=== PATIENT | male | born 1955 | race Caucasian/White ===

== ENCOUNTER 2023-10-08 23:43 | Emergency (ER) | payer OTHER ==
--- OUTSIDE RECORDS SUMMARY | 2023-10-08 23:46 | XMS REPORT | Continuity of Care Document ---
Author Name Unknown Address [address] [place] [address] [address] [facility] Address [address] [facility]. 1 [address] [place] [address] Care Team Providers Care Supervisor Claims Name Role Phone RAHAT WILEY Primary Care Physician Abi vailaDR RAHAT Brennan Attending Clinician Abi vailable [phone] Attending Clinician Unavailable Robert Attending Clinician Unavailable DR RAHAT WILEY Admitting Clinician Abi vailable Robert Admitting Clinician Unavailable Payers Payer Name Policy Type Policy Number Effective Date Expirati on Date Source [place] [employer] [id number] 2019 00:00:00 [facility] () [id number] [place] [employer] - [facility] [id number] 2019 00:00:00 Problems Condition Name Condition Details Condition Category Status Onset Date Resolution Date Last Treatment Date Treating Clinician Comments Source Hyperlipid emia Hyperlipid emia Problem Active 10-12 00:00: 00 [facility] Hypertensi ve disorder Hypertensi ve Disorder Problem Active 10-12 00:00: 00 [facility] Allergies, Adverse Reactions, Alerts Allergy Name Allergy Type Status Severity Reaction(s) Onset Date Inactive Date Treating Clinician Comments Source PENICILL INS Allergy to substanc e Active [facility] Medications Ordered Medication Name Filled Medication Name Start Date Stop Date Current Medication? Ordering Clinician Indication Dosage Frequency Signature (SIG) Comments Components Source allopurinol 100 mg tablet 0.5 mg daily allopurinol 100 mg tablet 0.5 mg daily No allopurino l 100 mg tablet 0.5 mg daily [facility] aspirin 81 mg tablet,baldomero yed release aspirin 81 mg tablet,baldomero yed release No aspirin 81 mg tablet,del ayed release [facility] benzonatate 200 mg capsule Take 1 capsule every 8 hours by oral route as needed. as needed for cough benzonatate 200 mg capsule Take 1 capsule every 8 hours by oral route as needed. as needed for cough No 1capsul e(s) Q8H benzonatat e 200 mg capsule Take 1 capsule every 8 hours by oral route as needed. as needed for cough [facility] carvedilol 12.5 mg tablet carvedilol 12.5 mg tablet No carvedilol 12.5 mg tablet [facility] doxycycline hyclate 100 mg capsule Take 1 capsule twice a day by oral route for 10 days. doxycycline hyclate 100 mg capsule Take 1 capsule twice a day by oral route for 10 days. No 1capsul e(s) BID doxycyclin e hyclate 100 mg capsule Take 1 capsule twice a day by oral route for 10 days. [facility] Eliquis 5 mg tablet TAKE 1 TABLET BY MOUTH TWICE DAILY Eliquis 5 mg tablet TAKE 1 TABLET BY MOUTH TWICE DAILY No Eliquis 5 mg tablet TAKE 1 TABLET BY MOUTH TWICE DAILY [facility] ezetimibe 10 mg tablet ezetimibe 10 mg tablet No ezetimibe 10 mg tablet [facility] finasteride 5 mg tablet finasteride 5 mg tablet No finasterid e 5 mg tablet [facility] hydrochloro thiazide 12.5 mg tablet hydrochloro thiazide 12.5 mg tablet No hydrochlor othiazide 12.5 mg tablet [facility] nitroglycer in 0.4 mg sublingual tablet nitroglycer in 0.4 mg sublingual tablet No nitroglyce rin 0.4 mg sublingual tablet [facility] omeprazole 20 mg capsule,del ayed release omeprazole 20 mg capsule,del ayed release No omeprazole 20 mg capsule,de layed release [facility] ProAir HFA 90 mcg/actuati on aerosol inhaler Inhale 2 puffs every 4-6 hours by inhalation route as needed. as needed for cough/ wheezing ProAir HFA 90 mcg/actuati on aerosol inhaler Inhale 2 puffs every 4-6 hours by inhalation route as needed. as needed for cough/ wheezing No 2puff(s ) Q5H ProAir HFA 90 mcg/actuat ion aerosol inhaler Inhale 2 puffs every 4-6 hours by inhalation route as needed. as needed for cough/ wheezing [facility] rosuvastati n 5 mg tablet rosuvastati n 5 mg tablet No rosuvastat in 5 mg tablet [facility] tamsulosin 0.4 mg capsule tamsulosin 0.4 mg capsule No tamsulosin 0.[address] [facility] Vital Signs Vital Name Observation Time Observation Value Comments S ource BP Diastolic 2022-10-12 00:00:00 88 mm[Hg] [facility] Height 2022-10-12 00:00:00 66 [in_i] [facility] BMI (Body Mass Index) 2022-10-12 00:00:00 34.7 kg/m2 [facility] BP Systolic 2022-10-12 00:00:00 128 mm[Hg] [facility] Weight 2022-10-12 00:00:00 3438.4 [oz_av] [facility] Procedures Procedure Date / Time Performed Performing Clinicia n Source Hernia Repair 2002-08-08 00:00:00 [facility] Carotid Stent Placement [facility] Plan of Care Planned Activity Planned Date Details Comments Source Diagnostic Test Pending 2022-10-12 00:00:00 rapid influenza virus A + B and SARS CoV + SARS CoV 2 Ag panel, IA, upper respiratory specimen [code = rapid influenza virus A + B and SARS CoV + SARS CoV 2 Ag panel, IA, upper respiratory specimen] [facility] Instructions [facility] Start Date/Time End Date/Time Encounter Type Admission Type Attending Clinicians Care Facility Care Department Encounter ID Source 2023-09-16 14:29:00 2023-09-16 14:29:00 Outpatient N RAHAT WILEY [id number] [facility] [id number] [facility] 2022-10-12 00:00:00 2022-10-12 00:00:00 Outpatient [facility] [id number] [facility] 2022-10-12 00:00:00 2022-10-12 00:00:00 Outpatient [facility] [id number] [facility] 2022-10-12 00:00:00 2022-10-12 00:00:00 Kristina Muñoz PA-C: [address] [place] [address], [address], [place] [address] , Ph. [facility] [id number] [facility]
[2023-10-09 03:02] LABS: Absolute Lymphocytes (CBC) 0.4 K/uL (0.7-4.9); Basophils % 0.5 % (0-1.3); Hematocrit 34.8 % (39.6-49.0); Lymphocytes % 6.5 % (15.3-44.8); MCV 92.8 fL (80-100); MPV 10.1 fL (7.6-11.3); Platelets 155 thou/uL (152-406); RBC Red Blood Cell Count 3.75 M/uL (4.33-5.43)
[2023-10-09 03:28] LABS: Protime INR 1.39
[2023-10-09 03:45] LABS: Albumin 3.5 g/dL (3.4-5.0); Albumin/Globulin Ratio 1.1 (1.1-1.8); Anion Gap 11.6 mEq/L (5.0-15.0); Bilirubin Direct 0.1 mg/dL (0-0.2); Bilirubin Indirect, Calculated 0.3 mg/dL (0.2-0.8); Bilirubin Total 0.4 mg/dL (0.2-1.0); Magnesium 2.1 mg/dL (1.6-2.4); Potassium 3.6 mEq/L (3.5-5.1); Protein, Total 6.8 g/dL (6.4-8.2); Troponin High Sensitivity 8.8 pg/mL (<58.9)
--- NOTE | 2023-10-09 04:48 | ER ---
Nurse's Notes [facility] Name: Nicholas German Age: 68 yrs Sex: Male : 1955 Arrival Date: 10/08/2023 Time: 23:43 Bed 17 Private MD: Diagnosis: Gross hematuria Presentation: 10/08 00:12 Chief complaint: Patient states: hematuria with large clots and decrease in urine pf1 output,onset worse tonight, onset July. Patient stated was seen here earlier today for the same symptoms, symptoms improved then was discharged. Coronavirus screen: Vaccine status: Patient reports receiving the 2nd dose of the covid vaccine. Client denies travel out of the [place] in the last 14 days. At this time, the client does not indicate any symptoms associated with coronavirus-19. Ebola Screen: Patient negative for fever greater than or equal to 101.5 degrees Fahrenheit, and additional compatible Ebola Virus Disease symptoms. Initial Sepsis Screen: Does the patient meet any 2 criteria? No. Patient's initial sepsis screen is negative. Does the patient have a suspected source of infection? No. Patient's initial sepsis screen is negative. Risk Assessment: Do you want to hurt yourself or someone else? Patient reports no desire to harm self or others. 00:12 Method Of Arrival: Ambulatory pf1 00:12 Acuity: JADE 3 pf1 06:04 Onset of symptoms is unknown. 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 - Social history:: Smoking status: Patient/guardian denies using tobacco, the patient reports quitting approximately 25 years ago, Patient/guardian denies using alcohol, but has a distant history of alcohol abuse. Screenin:58 [facility] ED Fall Risk Assessment (Adult) History of falling in the last 3 months, tm6 including since admission No falls in past 3 months (0 pts) Confusion or Disorientation No (0 pts) Intoxicated or Sedated No (0 pts) Impaired Gait No (0 pts) Mobility Assist Device Used No (0 pt) Altered Elimination No (0 pt) Score/Fall Risk Level 0 - 2 = Low Risk Oriented to surroundings, Maintained a safe environment. Abuse screen: Denies threats or abuse. Denies injuries from another. Nutritional screening: No deficits noted. Tuberculosis screening: No symptoms or risk factors identified. Assessment: 02:52 General: Appears in no apparent distress. Behavior is calm, cooperative. Pain: tm6 Complains of pain in groin Quality of pain is described as spasming Aggravated by urinating. Neuro: Level of Consciousness is awake, alert, obeys commands, Oriented to person, place, time, situation. Cardiovascular: Capillary refill < 3 seconds Patient's skin is warm and dry. Respiratory: Airway is patent Respiratory effort is even, unlabored, Respiratory pattern is regular, symmetrical. GI: Abdomen is round non-distended. : Reports blood in urine, difficulty urinating. pain when urinating. EENT: No signs and/or symptoms were reported regarding the EENT system. Derm: No signs and/or symptoms reported regarding the dermatologic system. Musculoskeletal: No signs and/or symptoms reported regarding the musculoskeletal system. 03:58 Reassessment: Patient and/or family updated on plan of care and expected duration. Pain tm6 level reassessed. Patient is alert, oriented x 3, equal unlabored respirations, skin warm/dry/pink. 05:15 Reassessment: Patient and/or family updated on plan of care and expected duration. Pain tm6 level reassessed. Patient is alert, oriented x 3, equal unlabored respirations, skin warm/dry/pink. discharge pending completion of bladder irrigation. 06:02 Reassessment: Patient appears in no apparent distress at this time. Patient and/or tm6 family updated on plan of care and expected duration. Pain level reassessed. Patient is alert, oriented x 3, equal unlabored respirations, skin warm/dry/pink. Vital Signs: 00:12 BP 155 / 95; Pulse 73; Resp 16; Temp 97.6; Pulse Ox 99% on R/A; Weight 95.25 kg; Height pf1 5 ft. 7 in. ; Pain 0/10; 02:58 BP 131 / 78; Pulse 79; Pulse Ox 96% on R/A; Pain 0/10; tm6 03:58 BP 97 / 70; Pulse 77; Pulse Ox 97% on R/A; Pain 0/10; tm6 05:15 BP 125 / 80; Pulse 67; Pulse Ox 98% on R/A; Pain 0/10; tm6 06:03 BP 115 / 73; Pulse 63; Resp 19; Temp 97.3(TE); Pulse Ox 100% on R/A; Pain 0/10; tm6 00:12 Body Mass Index 32.89 (95.25 kg, 170.18 cm) pf1 00:12 Pain Scale: Adult pf1 02:58 Pain Scale: Adult tm6 03:58 Pain Scale: Adult tm6 05:15 Pain Scale: Adult tm6 06:03 Pain Scale: Adult tm6 ED Course: 02 23:51 Patient arrived in ED. gm2 23:52 Dhruv Coburn PA is PHCP. cp 23:52 Herrera Leung MD is Attending Physician. cp 10/08 00:20 Triage completed. pf1 01:14 XRAY Chest (1 view) In Process Unspecified. EDMS 02:08 Katherine Sharma, RN is Primary Nurse. tm6 02:51 Inserted saline lock: 20 gauge in right antecubital area, using aseptic technique. tm6 02:58 Patient has correct armband on for positive identification. Call light in reach. Side tm6 rails up X 1. Provided Education on: plan of care. Client placed on continuous cardiac and pulse oximetry monitoring. NIBP monitoring applied. equipment monitor phototypesetting on. Pulse ox on. NIBP on. 02:58 Arm band placed on right wrist. tm6 03:24 CT Stone Protocol In Process Unspecified. EDMS 04:00 EKG done, by ED staff. tm6 04:24 3-way catheter inserted, using sterile technique, 16 Fr. Returned bloody urine. Bladder tm6 irrigated via Edwards normal saline returned amparo blood Patient tolerated well. 04:47 Ulises Champion MD is Referral Physician. ec2 04:47 Referral Physician role handed off by Ulises Champion MD ec2 06:02 leg bag applied to edwards. tm6 06:02 Provided Education on: edwards maintenance. tm6 06:03 No provider procedures requiring assistance completed. IV discontinued, intact, tm6 bleeding controlled, No redness/swelling at site. Pressure dressing applied. Administered Medications: No medications were administered Medication: 02:58 VIS not applicable for this client. tm6 Outcome: 04:47 Discharge ordered by . ec2 06:03 Discharged to home ambulatory, with family, tm6 06:03 Condition: stable 06:03 Discharge instructions given to patient, family, Instructed on discharge instructions, follow up and referral plans. edwards maintenance Demonstrated understanding of instructions, follow-up care, edwards maintenance 06:04 Patient left the ED. tm6 Signatures: Dispatcher [employer] EDMS Dhruv Coburn PA PA cp Finley, Pamala, KIMI RN pf1 Hererra Leung MD MD ec2 Tasia Villalobos Tawney, RN RN tm6 Corrections: (The following items were deleted from the chart) 00:23 00:20 PSHx: bladder (Bladder CA); pf1 pf1
--- NOTE | 2023-10-09 04:48 | EDPHYS ---
Physician Documentation [facility] Name: Nicholas German Age: 68 yrs Sex: Male : 1955 Arrival Date: 10/08/2023 Time: 23:43 Bed 17 Private MD: ED Physician Herrera Leung HPI: 10/08 00:33 This 68 yrs old Male presents to ER via Ambulatory with complaints of Urinary Problem, cp BLOOD IN URNINE. 00:33 The patient presents with urinary symptoms, retention, unable to void, hematuria. cp Onset: The symptoms/episode began/occurred yesterday. Associated signs and symptoms: Pertinent positives: abdominal pain. 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 - Social history:: Smoking status: Patient/guardian denies using tobacco, the patient reports quitting approximately 25 years ago, Patient/guardian denies using alcohol, but has a distant history of alcohol abuse. ROS: 00:35 Constitutional: Negative for body aches, chills, fever, poor PO intake, cp 00:35 Cardiovascular: Negative for chest pain, edema, palpitations, cp 00:35 Abdomen/GI: Positive for abdominal pain, of the suprapubic area, 00:35 Back: Negative for pain at rest, pain with movement, 00:35 : Positive for hematuria, difficulty urinating, 03:54 Constitutional: as per hpi ec2 Exam: 00:40 Constitutional: The patient appears in no acute distress, alert, awake, cp non-diaphoretic, non-toxic, well developed, well nourished, uncomfortable, 00:40 Head/Face: Normocephalic, atraumatic. cp 00:40 Eyes: Periorbital structures: appear normal, Conjunctiva: normal, no exudate, no injection, Sclera: no appreciated abnormality, Lids and lashes: appear normal, bilaterally, 00:40 ENT: External ear(s): are unremarkable, Nose: is normal, Mouth: Lips: moist, Oral mucosa: pink and intact, moist, Posterior pharynx: is normal, airway is patent, no erythema, no exudate, 00:40 Chest/axilla: Inspection: normal, 00:40 Cardiovascular: Rate: normal, Rhythm: regular, 00:40 Respiratory: the patient does not display signs of respiratory distress, Respirations: normal, no use of accessory muscles, no retractions, labored breathing, is not present, Breath sounds: are clear throughout, no decreased breath sounds, no stridor, no wheezing, 00:40 Abdomen/GI: Inspection: abdomen appears normal, Bowel sounds: active, all quadrants, Palpation: soft, in all quadrants, moderate abdominal tenderness, in the suprapubic area, 00:40 Back: CVA tenderness, is absent, Vital Signs: 00:12 BP 155 / 95; Pulse 73; Resp 16; Temp 97.6; Pulse Ox 99% on R/A; Weight 95.25 kg; Height pf1 5 ft. 7 in. ; Pain 0/10; 02:58 BP 131 / 78; Pulse 79; Pulse Ox 96% on R/A; Pain 0/10; tm6 03:58 BP 97 / 70; Pulse 77; Pulse Ox 97% on R/A; Pain 0/10; tm6 05:15 BP 125 / 80; Pulse 67; Pulse Ox 98% on R/A; Pain 0/10; tm6 06:03 BP 115 / 73; Pulse 63; Resp 19; Temp 97.3(TE); Pulse Ox 100% on R/A; Pain 0/10; tm6 00:12 Body Mass Index 32.89 (95.25 kg, 170.18 cm) pf1 00:12 Pain Scale: Adult pf1 02:58 Pain Scale: Adult tm6 03:58 Pain Scale: Adult tm6 05:15 Pain Scale: Adult tm6 06:03 Pain Scale: Adult tm6 MDM: 00:28 Patient medically screened. cp 02:09 Data reviewed: vital signs. Transition of care: Care assumed from Dhruv AGUSTIN. ED ec2 course: Patient arrives today with hematuria and concern for obstruction. Plan is to obtain lab work, CT imaging and reassess the patient.. 03:30 ED course: CBC shows anemia 10.3. PT at 1.4. . ec2 03:47 ED course: EKG independently reviewed and interpreted by me, shows atrial fibrillation, ec2 rate of 80, no acute ST segment elevations, nonconcerning intervals.. 03:54 ED course: Metabolic profile shows slight hypokalemia. Troponin within normal ranges. ec2 Pending CT imaging. . 04:38 ED course: Of note patient with UA earlier this morning that was noninfectious ec2 appearing. Will defer repeat UA. . 04:38 ED course: CT on pelvis shows no acute intra-abdominal process, no ureteral or renal ec2 calculi. Chronic AAA noted, no evidence of rupture or leakage, will recommend repeat follow-up in 5 years. Patient with bladder diverticula noted. . 04:46 ED course: Will discharge home with catheter in place. Will have patient follow-up with ec2 urology. Patient has urology appointment in 2 and half weeks. He will follow-up at this time. . 10/08 00:47 Order name: Basic Metabolic Panel; Complete Time: 03:54 cp 10/08 00:47 Order name: CBC with Diff; Complete Time: 03:30 cp 10/08 00:47 Order name: LFT's; Complete Time: 03:54 cp 10/08 00:47 Order name: Magnesium; Complete Time: 03:54 cp 10/08 00:47 Order name: PT-INR; Complete Time: 03:30 cp 10/08 00:47 Order name: Troponin HS; Complete Time: 03:54 cp 10/08 00:47 Order name: XRAY Chest (1 view) cp 10/08 02:04 Order name: CT Stone Protocol cp 10/08 00:47 Order name: EKG; Complete Time: 00:48 cp 10/08 00:47 Order name: Cardiac monitoring; Complete Time: 02:51 cp 10/08 00:47 Order name: EKG - Nurse/Tech; Complete Time: 03:46 cp 10/08 00:47 Order name: IV Saline Lock; Complete Time: 02:51 cp 10/08 00:47 Order name: Labs collected and sent; Complete Time: 02:51 cp 10/08 00:47 Order name: O2 Per Protocol; Complete Time: 02:37 cp 10/08 00:47 Order name: O2 Sat Monitoring; Complete Time: 02:37 cp 10/08 00:47 Order name: Driss-Three way; Complete Time: 04:24 cp Administered Medications: No medications were administered Disposition: 04:47 I agree with the assessment and plan of care. I reviewed the patient's care provided by ec2 Advanced Practice Provider \T\ agree w/ the diagnosis \T\ care plan. I personally saw the pt \T\ performed a substantive portion of the visit, incldng all aspects of the (History/Exam/Medical Decision Making). Disposition Summary: 10/09/23 04:47 Discharge Ordered Condition: Stable ec2 Diagnosis - Gross hematuria ec2 Followup: ec2 - With: Private Physician - When: - Reason: Re-evaluation by your physician Followup: ec2 - With: Ulises Champion MD - When: - Reason: Recheck today's complaints Discharge Instructions: - Discharge Summary Sheet ec2 - Hematuria, Adult ec2 Forms: - Medication Reconciliation Form ec2 - Thank You Letter ec2 - Antibiotic Education ec2 - Prescription Opioid Use ec2 - Patient Portal Instructions ec2 - Leadership Thank You Letter ec2 Signatures: Dispatcher [employer] EDMS Dhruv Coburn PA PA cp Solange Moore, RN RN pf1 Herrera Leung MD MD ec2 Corrections: (The following items were deleted from the chart) 00:23 00:20 PSHx: bladder (Bladder CA); pf1 pf1 01:33 00:50 This 68 yrs old Male presents to ER via Ambulatory with complaints of Urinary cp Problem, BLOOD IN URNINE. cp
[2023-10-09 06:35] VITALS: BP 115/73; TEMP 97.3; O2SAT 100
--- NOTE | 2023-10-09 20:42 | RAD REPORT ---
EXAM DESCRIPTION: RAD - Chest Single View - 10/09/2023 1:12 am CLINICAL HISTORY: Hematuria COMPARISON: None. TECHNIQUE: XR CHEST 1 VIEW 10/09/2023 12:47 AM [facility] FINDINGS: Cardiac silhouette is normal in size. Lungs are clear without consolidation, atelectasis, mass or edema. There is no pleural effusion. There is no pneumothorax. There are no acute osseous fin dings. Right diaphragm is elevated. IMPRESSION: Clear lungs. Electronically signed by: Malcolm Porras MD 10/09/2023 01:19 AM [facility] Due to temporary technical issues with the PACS/Fluency reporting system, reports are being signed by the in house radiologists without review as a courtesy to insure prompt reporting. The interpreting radiologist is fully responsible for the content of the report.
--- NOTE | 2023-10-09 20:43 | RAD REPORT ---
EXAM DESCRIPTION: CT - Stone Protocol - 10/09/2023 6:06 am ADDENDUM #1 Correction: Cystic structures in the pelvis, in this male patient, do not represent ovarian cysts but most likely represent urinary bladder diverticula. Electronically signed by: Malcolm Porras MD 10/09/2023 04:13 AM CHIEF INSPECTOR End of Addendum CLINICAL HISTORY: HEMATURIA COMPARISON: None. TECHNIQUE: CT ABDOMEN PELVIS WITHOUT IV CONTRAST on 10/09/2023 2:04 AM CHIEF INSPECTOR This exam was performed according to our departmental dose-optimization program, which includes autom ated exposure control, adjustment of the mA and/or kV according to patient size and/or use of iterati ve reconstruction technique. FINDINGS: Lower lungs are clear. Abdomen: The liver is normal in appearance. There is no biliary dilatation. Gallbladder is normal in appearance. The pancreas and spleen are normal in appearance. Adrenal glands are normal. Upper pole l eft renal cyst measures 4.3 cm. There is no hydronephrosis. Abdominal aorta is moderately calcified measuring up to 2.9 cm. There is no free air. There is no ret roperitoneal adenopathy. Pelvis: There is mild diverticulosis of the distal colon. Urinary bladder is unremarkable. There is n o free fluid. Hysterectomy was performed. Right ovarian cyst measures 6.8 cm. Left ovarian cyst measu res 4.4 cm. Appendix is normal. Skeleton: There are no acute osseous findings. No suspicious bony lesions. IMPRESSION: No definite renal or ureteral calculi. 2.9 cm abdominal aortic aneurysm suspected. Recommend follow-up every 5 years. Reference: J Am Marybel Radiol 2013;10:789-794. Left Bosniak I/Bosniak II benign renal cyst measuring 4.3 cm. No follow-up imaging is recommended. JACR 2018 b; 264-273, Management of the Incidental Renal Mass on CT, [employer] 2020; 814-848, B osniak Classification of Cystic Renal Masses, Version 2019. Bilateral ovarian cysts. Recommend ultrasound. Electronically signed by: Malcolm Porras MD 10/09/2023 03:56 AM CHIEF INSPECTOR Due to temporary technical issues with the PACS/Fluency reporting system, reports are being signed by the in house radiologists without review as a courtesy to insure prompt reporting. The interpreting radiologist is fully responsible for the content of the report.
--- NOTE | 2023-10-11 17:12 | EKG ---
Test Date: 2023-10-09 Test Time: 03:43:09 Guest Services: BEBETO MEASUREMENT RESULTS: Intervals: Rate: 80 SD: QRSD: 82 QT: 398 QTc: 459 [place]: P: SD: QRS: 59 T: 24 INTERPRETIVE STATEMENTS: Atrial fibrillation Low voltage QRS Septal infarct, age undetermined Abnormal ECG No previous ECG available for comparison Electronically Signed On 10-11-23 17:05:05 DIRECTOR INDEX by Austyn Barron
== END 2023-10-09 06:04 | disposition home or self-care (01) ==
LOC: EEVIPCON 23:43 → ER 23:43
DX: R31.0 Gross hematuria (principal); R10.30 Lower abdominal pain, unspecified; Z85.51 Personal history of malignant neoplasm of bladder; Z95.818 Presence of other cardiac implants and grafts; Z88.0 Allergy status to penicillin; Z88.8 Allergy status to other drugs, medicaments and biological substances
CPT/HCPCS: 51700; 71045; 74176; 76377; 93005; 99285

== ENCOUNTER 2023-10-10 10:47 | Inpatient (IN) | payer OTHER ==
--- OUTSIDE RECORDS SUMMARY | 2023-10-10 10:49 | XMS REPORT | Continuity of Care Document ---
Author Name Unknown Address [address] [place] [address] [address] [facility] Address [address] [facility]. 1 [address] [place] [address] Care Team Providers Care Sales Support Representative Name Role Phone RAHAT WILEY Primary Care Physician Abi vailaDR RAHAT Brennan Attending Clinician Abi vailable [phone] Attending Clinician Unavailable Robert Attending Clinician Unavailable DR RAHAT WILEY Admitting Clinician Abi vailable Robert Admitting Clinician Unavailable Payers Payer Name Policy Type Policy Number Effective Date Expirati on Date Source [place] [employer] [id number] 2019 00:00:00 [facility] () [id number] [place] [employer] - [facility] [id number] 2019 00:00:00 Problems Condition Name Condition Details [...] l 100 mg tablet 0.5 mg daily [facility] aspirin 81 mg tablet,baldomero yed release aspirin 81 mg tablet,baldomero yed release No aspirin 81 mg tablet,del ayed release [facility] benzonatate 200 mg capsule [...] route as needed. as needed for cough [facility] carvedilol 12.5 mg tablet carvedilol 12.5 mg tablet No carvedilol 12.5 mg tablet [facility] doxycycline hyclate 100 mg capsule Take 1 capsule twice a day by oral route for 10 days. doxycycline hyclate 100 mg capsule Take 1 capsule twice a day by oral route for 10 days. No 1capsul e(s) BID doxycyclin e hyclate 100 mg capsule Take 1 capsule twice a day by oral route for 10 days. [facility] Eliquis 5 mg tablet TAKE 1 TABLET BY MOUTH TWICE DAILY Eliquis 5 mg tablet TAKE 1 TABLET BY MOUTH TWICE DAILY No Eliquis 5 mg tablet TAKE 1 TABLET BY MOUTH TWICE DAILY [facility] ezetimibe 10 mg tablet ezetimibe 10 mg tablet No ezetimibe 10 mg tablet [facility] finasteride 5 mg tablet finasteride 5 mg tablet No finasterid e 5 mg tablet [facility] hydrochloro thiazide 12.5 mg tablet hydrochloro thiazide 12.5 mg tablet No hydrochlor othiazide 12.5 mg tablet [facility] nitroglycer in 0.4 mg sublingual tablet nitroglycer in 0.4 mg sublingual tablet No nitroglyce rin 0.4 mg sublingual tablet [facility] omeprazole 20 mg capsule,del ayed release omeprazole 20 mg capsule,del ayed release No omeprazole 20 mg capsule,de layed release [facility] ProAir HFA 90 mcg/actuati on aerosol inhaler [...] as needed. as needed for cough/ wheezing [facility] rosuvastati n 5 mg tablet rosuvastati n 5 mg tablet No rosuvastat in 5 mg tablet [facility] tamsulosin 0.4 mg capsule tamsulosin 0.4 mg capsule No tamsulosin 0.4 mg capsule [facility] Vital Signs Vital Name Observation Time Observation Value Comments S ource BP Diastolic 2022-10-12 00:00:00 88 mm[Hg] [facility] Height 2022-10-12 00:00:00 66 [in_i] [facility] BMI (Body Mass Index) 2022-10-12 00:00:00 34.7 kg/m2 [facility] BP Systolic 2022-10-12 00:00:00 128 mm[Hg] [facility] 2022-10-12 00:00:00 3438.4 [oz_av] [facility] Procedures Procedure Date / Time Performed Performing Clinicia n Source Hernia Repair 2002-08-08 00:00:00 [facility] Carotid Stent Placement [facility] Plan of Care Planned Activity Planned Date Details Comments Source Diagnostic Test Pending 2022-10-12 00:00:00 rapid influenza virus A + B and SARS CoV + SARS CoV 2 Ag panel, [place], upper respiratory specimen [code = rapid influenza virus A + B and SARS CoV + SARS CoV 2 Ag panel, IA, upper respiratory specimen] [facility] Instructions [facility] Encounters Start Date/Time End Date/Time Encounter Type Admission Type Attending Clinicians Care Facility Care Department Encounter ID Source 2023-09-16 14:29:00 2023-09-16 14:29:00 Outpatient N RAHAT WILEY [id number] [facility] [id number] [facility] 2022-10-12 00:00:00 2022-10-12 00:00:00 Outpatient Koudela_A [facility] [id number] [facility] 2022-10-12 00:00:00 2022-10-12 00:00:00 Outpatient [facility]ela[facility] [id number] [facility] 2022-10-12 00:00:00 2022-10-12 00:00:00 Kristina Muñoz PA-C: [address] [place] [address], [address], [place] [address] , Ph. [facility] [id number] [facility]
[2023-10-10] MEDS ORDERED: NACL 0.9% IRR SOLN 2,000 ML IRR ONE ×3 (12:30→14:16)
--- NOTE | 2023-10-10 15:23 | EDPHYS ---
Physician Documentation [facility] Name: Nicholas German Age: 68 yrs Sex: Male : 1955 Arrival Date: 10/10/2023 Time: 10:47 Bed 8 Private MD: ED Physician Jonatan Hills HPI: 10/09 18:09 This 68 yrs old Male presents to ER via Wheelchair with complaints of Problem With ms3 Urinary Catheter. 18:09 68-year-old male with past medical history of bladder cancer presents to the emergency [facility] department for hematuria. Patient was seen on October 07, October 08 and today. Patient initially presented to the emergency department for urinary retention after discovering the hematuria. Patient states he is having 8/10 suprapubic pain. Patient denies any alleviating or inciting factors. 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 - Social history:: Smoking status: Patient/guardian denies using tobacco, but has a distant history of tobacco abuse. ROS: 18:09 Constitutional: Negative for fever, and chills. Neck: Negative for injury, pain, and ms3 swelling, Cardiovascular: Negative for chest pain, and palpitations. Respiratory: Negative for shortness of breath, cough, wheezing, and pleuritic chest pain, Abdomen/GI: Negative for abdominal pain, nausea, vomiting, diarrhea, and constipation, 18:09 : Positive for hematuria, Urinary retention, Exam: 18:09 Constitutional: This is a well developed, well nourished patient who is awake, alert, ms3 and in no acute distress. Head/Face: Normocephalic, atraumatic. Chest/axilla: Normal chest wall appearance and motion. Nontender with no deformity. Cardiovascular: Regular rate and rhythm with a normal S1 and S2. No gallops, murmurs, or rubs. Normal PMI, no JVD. No pulse deficits. Respiratory: Lungs have equal breath sounds bilaterally, clear to auscultation and percussion. No rales, rhonchi or wheezes noted. No increased work of breathing, no retractions or nasal flaring. Abdomen/GI: Soft, non-tender, with normal bowel sounds. No distension or tympany. No guarding or rebound. No evidence of tenderness throughout. Skin: Warm, dry with normal turgor. Normal color with no rashes, no lesions, and no evidence of cellulitis. MS/ Extremity: Pulses equal, no cyanosis. Neurovascular intact. Full, normal range of motion. 18:09 : a edwards is noted, Vital Signs: 11:03 BP 145 / 79; Pulse 85; Resp 18; Temp 98.4; Pulse Ox 98% on R/A; Pain 0/10; iw 12:05 BP 140 / 82; Pulse 78; Resp 18; Pulse Ox 99% on R/A; rs5 14:05 BP 135 / 77; Pulse 73; Resp 17; Pulse Ox 98% on R/A; rs5 15:50 BP 137 / 80; Pulse 74; Resp 18; Pulse Ox 99% on R/A; rs5 11:03 Pain Scale: Adult iw MDM: 11:02 Patient medically screened. ms3 18:09 Differential diagnosis: nonspecific abdominal pain, UTI, Hematuria. Data reviewed: ms3 vital signs, nurses notes, and as a result, I will admit patient. Consideration of Admission/Observation Patient was admitted/placed on observation. Management of patient was discussed with the following: Hospitalist: Dr. Walters. Vending Machine Technician: Dr. Champion. Historians other than the Patient: Spouse/Significant Other: Patient's . Counseling: I had a detailed discussion with the patient and/or guardian regarding the historical points, exam findings, and any diagnostic results supporting the discharge/admit diagnosis, lab results, the need for outpatient follow up, to return to the emergency department if symptoms worsen or persist or if there are any questions or concerns that arise at home. Special discussion: I discussed with the patient/guardian in detail that at this point there is no indication for admission to the hospital. It is understood, however, that if the symptoms persist or worsen the patient needs to return immediately for re-evaluation. ED course: Discussed case with Dr. Champion and he will consult on patient. Discussed case with Dr. Walters and he accepts patient as admission. Patient and his understand and agree with plan. All questions were answered.. 10/09 15:06 Order name: CBC with Diff; Complete Time: 17:56 ms3 10/09 15:06 Order name: CMP ms3 10/09 15:06 Order name: PT-INR ms3 10/09 15:17 Order name: Urinalysis w/ reflexes; Complete Time: 17:56 ms3 10/09 13:28 Order name: Bladder Irrigation; Complete Time: 13:45 ms3 10/09 15:20 Order name: IV; Complete Time: 16:50 la1 Administered Medications: 13:44 Drug: Uromatic Irrigation - NS 0.9% IV 4000 ml 2000 ml IV at calculated rate once rs5 {Note: Adm to three way edwards.} Volume: 2000 ml; Route: IV; Rate: calculated rate; Site: Other; 14:00 Follow up: Response: No adverse reaction rs5 Disposition Summary: 10/10/23 15:22 Hospitalization Ordered Notes: Hospitalization Status: Inpatient Admission ms3 Provider: Bertram Walters ms3 Location: Telemetry/MedSur (Inpatient) ms3 Condition: Stable ms3 Problem: new ms3 Symptoms: are unchanged ms3 Bed/Room Type: Standard ms3 Room Assignment: 206(10/10/23 16:38) bd Diagnosis - Hematuria, unspecified ms3 - Urinary retention ms3 Forms: - Medication Reconciliation Form ms3 - SBAR form ms3 - Leadership Thank You Letter ms3 Signatures: Dispatcher [employer] EDNadiya Hilton Irene, KIMI BOLDEN iw Kalyan Hill, HEALTHCARE ADVISORY SERVICES MANAGER-C HEALTHCARE ADVISORY SERVICES MANAGER-Desi1 Jonatan Hills DO DO ms3 Fred Bryson RN RN rs5 Corrections: (The following items were deleted from the chart) 16:38 15:22 ms3 bd
--- NOTE | 2023-10-10 15:23 | ER ---
Nurse's Notes [facility]tet Name: Nicholas German Age: 68 yrs Sex: Male : 1955 Arrival Date: 10/10/2023 Time: 10:47 Bed 8 Private MD: Diagnosis: Hematuria, unspecified;Urinary retention Presentation: 10/09 11:03 Chief complaint: Patient states: had edwards placed yesterday , had CBI done , this iw morning he has been passing blood and urine is leaking out od edwards , has hx of bladder and prostate cancer , has had multiple surgeries to remove tumors, urologist is in [place]. Coronavirus screen: At this time, the client does not indicate any symptoms associated with coronavirus-19. Ebola Screen: Patient negative for fever greater than or equal to 101.5 degrees Fahrenheit, and additional compatible Ebola Virus Disease symptoms Patient denies exposure to infectious person. Initial Sepsis Screen: Does the patient meet any 2 criteria? No. Patient's initial sepsis screen is negative. Does the patient have a suspected source of infection? No. Patient's initial sepsis screen is negative. Risk Assessment: Do you want to hurt yourself or someone else? Patient reports no desire to harm self or others. Onset of symptoms was October 10, 2023. 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 - Social history:: Smoking status: Patient/guardian denies using tobacco, but has a distant history of tobacco abuse. Screenin:53 [facility] ED Fall Risk Assessment (Adult) History of falling in the last 3 months, rs5 including since admission No falls in past 3 months (0 pts) Confusion or Disorientation No (0 pts) Intoxicated or Sedated No (0 pts) Impaired Gait No (0 pts) Mobility Assist Device Used No (0 pt) Altered Elimination No (0 pt) Score/Fall Risk Level 0 - 2 = Low Risk Oriented to surroundings, Maintained a safe environment. 10:53 Abuse screen: Denies threats or abuse. Nutritional screening: No deficits noted. rs5 Tuberculosis screening: No symptoms or risk factors identified. Assessment: 10:55 General: Appears in no apparent distress. uncomfortable, Behavior is calm, cooperative. rs5 Pain: Denies pain. Neuro: Level of Consciousness is awake, alert, obeys commands, Oriented to person, place, time, situation. Cardiovascular: Rhythm is regular. Respiratory: Airway is patent Respiratory effort is even, unlabored, Respiratory pattern is regular, symmetrical. GI: Abdomen is round non-distended, Abd is soft and non tender X 4 quads. : 3-way catheter in place clamped pt has a urine bag strapped to right lower extremity. 200 ml bright red urine drained from drainage bag. Pt states "it feels like the catheter has a clot in it because when I pee it leeks outside the cathether". 10:55 EENT: No signs and/or symptoms were reported regarding the EENT system. Derm: Skin Skin rs5 is pink, warm \\T\\ dry. Musculoskeletal: Range of motion: intact in all extremities. 11:15 Reassessment: waiting for provider to put in orders. rs5 11:25 Reassessment: provider states "remove the Edwards and insert a new one with a larger rs5 catheter". 11:41 Reassessment: To bedside, Edwards removed and 20 nigerien 3-way catheter inserted per rs5 verbal orders using sterile technique. Pt voided 50 ml of bright red urine in urine bag. Provider notified. 11:45 Reassessment: Provider states "irrigate the bladder with 2 L of NS set to gravity". rs5 11:50 Reassessment: To bedside, for irrigation. rs5 12:24 Reassessment: 1L of bright red urine emptied from urinal. Pt denies pain, burning with rs5 urination or difficulty provider notified. 13:00 Reassessment: 950 ml of bright red urine emptied from urinal. Pt denies pain, burning rs5 with urination or difficulty provider notified. Provider states "irrigate Edwards catheter with 2 more liters" . 13:05 Reassessment: To bedside for bladder irrigation. rs5 13:32 Reassessment: 855 ml of pink urine emptied from urinal, provider notified. rs5 14:14 Reassessment: 900 ml pink urine emptied from urinal, provider notified. Provider at rs5 bedside, provider states "irrigate with two more liters". 14:15 Reassessment: To bedside for bladder irrigation. rs5 Vital Signs: 11:03 BP 145 / 79; Pulse 85; Resp 18; Temp 98.4; Pulse Ox 98% on R/A; Pain 0/10; iw 12:05 BP 140 / 82; Pulse 78; Resp 18; Pulse Ox 99% on R/A; rs5 14:05 BP 135 / 77; Pulse 73; Resp 17; Pulse Ox 98% on R/A; rs5 15:50 BP 137 / 80; Pulse 74; Resp 18; Pulse Ox 99% on R/A; rs5 11:03 Pain Scale: Adult iw ED Course: 10:49 Patient arrived in ED. mr 10:49 Jonatan Hills DO is Attending Physician. ms3 10:55 Gisel Cochran, RN is Primary Nurse. ko1 11:05 Triage completed. iw 11:06 Arm band placed on. iw 11:15 Patient has correct armband on for positive identification. Allergy band placed. Placed ko1 in gown. Bed in low position. Call light in reach. Side rails up X2. Provided Education on: na. Client placed on continuous cardiac and pulse oximetry monitoring. NIBP monitoring applied. personnel monitor on. Door closed. Noise minimized. Lights dimmed. Warm blanket given. 11:23 Fred Bryson, RN is Primary Nurse. rs5 15:22 Bertram Walters MD is Hospitalizing Provider. ms3 16:45 Missed attempt(s): 20 gauge in right wrist. bc6 16:50 Inserted saline lock: 20 gauge in right wrist, using aseptic technique. bc6 17:00 No provider procedures requiring assistance completed. ko1 17:00 Patient admitted, IV remains in place. rs5 Administered Medications: 13:44 Drug: Uromatic Irrigation - NS 0.9% IV 4000 ml 2000 ml IV at calculated rate once rs5 {Note: Adm to three way edwards.} Volume: 2000 ml; Route: IV; Rate: calculated rate; Site: Other; 14:00 Follow up: Response: No adverse reaction rs5 Medication: 16:58 VIS not applicable for this client. ko1 Outcome: 15:22 Decision to Hospitalize by Provider. ms3 15:30 Discharged to rs5 15:30 Admitted to ER Hold. Please see [facility] for further documentation. 15:30 Condition: stable 15:30 Discharge instructions given to patient, Instructed on the need for admit, Demonstrated understanding of instructions, 17:31 Patient left the ED. rs5 Signatures: Leonor Nicole, Reg Reg mr Denae Vu, RN RN iw Jonatan Hills, DO ms3 Gisel Cochran RN RN ko1 Fred Bryson RN RN rs5 Pooja Fry 6 Corrections: (The following items were deleted from the chart) 14:10 11:41 Reassessment: To bedside, Edwards removed and 20 nigerien 3-way catheter inserted per rs5 MD verbal orders using sterile technique. Pt voided 50 ml of bright red urine in urine bag. rs5 14:12 12:24 Reassessment: 1L of bright red urine emptied from urinal, provider notified. rs5 rs5 14:13 13:00 Reassessment: 950 ml of bright red urine emptied from urinal. Pt denies pain, rs5 burning with urination or difficulty provider notified . rs5 17:57 17:56 Patient left the ED. rs5 rs5
--- NOTE | 2023-10-10 17:25 | P.HP ---
Certification for Inpatient Patient admitted to: Observation With expected LOS: <2 Midnights Patient will require the following post-hospital care: None Practitioner: I am a practitioner with admitting privileges, knowledge of patient current condition, hospital course, and medical plan of care. Services: Services provided to patient in accordance with Admission requirements found in Title 42 Section 412.3 of the Code of Federal Regulations Patient History Date of Service: 10/10/23 Reason for admission: Hematuria History of Present Illness: 68-year-old male with history of atrial fibrillation on chronic anticoagulation, CAD hypertension, hyperlipidemia, gout, GERD and obstructive sleep apnea presents the emergency department chief complaint of hematuria. He has a medical history of prostate and bladder cancer as well, last year they attempted to remove his prostate but it was reportedly adhered to his colon so they are unable to remove it, he then underwent 39 radiation treatments for the bladder cancer which significantly improved, they performed a biopsy in August and it still was positive for cancer. He has been taking an oral chemo agent since then. He typically gets his care in [place], his urologist name is Dr. Barrera phone number [phone] The past few days he has been having blood in his urine, the first time he came to the emergency department it seemed to resolve spontaneously so he was discharged, he had to come back as he could not urinate and a Naqvi catheter was placed and he was discharged but the bleeding continued and therefore he had to come back for third time the emergency department he is now being admitted for hematuria. A three-way catheter was placed in the emergency department and he has undergone bladder irrigation still with very dark blood returning. Urology was consulted by the ER physician. Patient does take Eliquis his last dose was today around noon. He had abdominal CT performed on 10/09/2023 which revealed 2.9 cm abdominal aortic aneurysm with recommended 5-year follow-up observation, left benign renal cyst measuring 4.3 cm no follow-up imaging recommended cystic structures in the pelvis most likely representing urinary bladder diverticula. ED prior wishes to admit patient for further evaluation and management of hematuria. Allergies Penicillins Allergy (Verified 10/10/23 17:03) Hives/Rash - Past Medical/Surgical History -: A-fib on chronic anticoagulation -: CAD with stents -: Hypertension -: Hyperlipidemia -: GERD -: JOHN PAUL Past Surgical History: Reviewed- Non-Contributory Psychosocial/ Personal History: Lives with his in [place], spends some months of the year here in [facility] - Family History Family History: Reviewed- Non-Contributory - Social History Smoking Status: Former smoker Alcohol use: Yes CD- Drugs: No Caffeine use: No Place of Residence: Home Review of Systems 10-point ROS is otherwise unremarkable Genitourinary: Hematuria Physical Examination - Physical Exam General: Alert, In no apparent distress, Oriented x3 HEENT: Atraumatic, PERRLA, Mucous membr. moist/pink Neck: Supple, 2+ carotid pulse no bruit, No LAD Respiratory: Clear to auscultation bilaterally, Normal air movement Cardiovascular: Regular rate/rhythm, Normal S1 S2 Gastrointestinal: Normal bowel sounds, No tenderness Musculoskeletal: No tenderness Integumentary: No rashes Neurological: Normal gait, Normal speech, Normal strength at 5/5 x4 extr, Normal tone, Normal affect Urinary: Naqvi catheter (With dark red blood noted) Assessment and Plan - Plan Assessment: Hematuria Bladder/prostate cancer Atrial fibrillation on chronic anticoagulation therapy History of CAD Hypertension Hyperlipidemia Gout GERD JOHN PAUL Plan: Hematuria Bladder/prostate cancer Currently on oral chemotherapy agents Completed 39 radiation treatments for bladder cancer Had attempted prostatectomy but apparently was adhered to his colon Started having hematuria 2 to 3 days [id number] catheter in place with I Urology consulted olga Sharpe Out of town urologist in [place] [phone] Atrial fibrillation on chronic anticoagulation therapy History of CAD Hold Eliquis, aspirin Continue other home medications when verified Hypertension Hyperlipidemia Gout GERD Continue home medication once verified plans on bringing list in the morning JOHN PAUL Patient brought his own CPAP which he may use DVT PPX: SCD Code status: Full Discharge Plan: Home Plan to discharge in: 24 Hours - Advance Directives Does patient have a Living Will: No Does patient have a Durable POA for Healthcare: No - Code Status/Comfort Care Code Status Assessed: Yes (Full code) Critical Care: No Time Spent Managing Pts Care (In Minutes): 70
[2023-10-10 17:45] LABS: Absolute Eosinophils 0.1 K/uL (0-0.5); Absolute Lymphocytes (CBC) 0.4 K/uL (0.7-4.9); Absolute Monocytes 0.7 K/uL (0.1-1.3); Absolute Neutrophil 4.6 K/uL (1.8-8.0); Basophils % 0.5 % (0-1.3); Hematocrit 32.2 % (39.6-49.0); Hemoglobin 11.4 g/dL (13.6-17.9); Lymphocytes % 7.3 % (15.3-44.8); MCH 32.9 pg (27.0-35.0); MCHC 35.4 g/dL (32.0-36.0); MCV 92.9 fL (80-100); MPV 9.9 fL (7.6-11.3); Monocytes % 11.8 % (3.3-12.3); Neutrophils % 78.4 % (41.7-73.7); Nucleated Red Blood Cells % 0.1 % (0-0); Platelets 150 thou/uL (152-406); RBC Red Blood Cell Count 3.47 M/uL (4.33-5.43); Red Cell Distribution Width 12.5 % (12.1-15.2)
[2023-10-10 17:48] LABS: Urine Bacteria <20 /HPF (<20); Urine RBC >50 /HPF (None Seen)
[2023-10-10 17:49] LABS: Urine Clarity Extremely Turbid (Clear); Urine Color Red (Yellow)
[2023-10-10 18:02] LABS: Albumin 3.5 g/dL (3.4-5.0); Albumin/Globulin Ratio 1.1 (1.1-1.8); Anion Gap 10.7 mEq/L (5.0-15.0); Bilirubin Total 0.3 mg/dL (0.2-1.0); Globulin 3.3 g/dL (2.3-3.5); Potassium 3.7 mEq/L (3.5-5.1); Protein, Total 6.8 g/dL (6.4-8.2)
[2023-10-10 18:19] VITALS: BMI 32.8
[2023-10-10 18:55] LABS: PT Prothrombin Time 15.2 SECONDS (9.5-12.5); Protime INR 1.4
[2023-10-10] MEDS: LIDOCAINE JELLY 2% 5 ML SYRINGE TOP ONE (19:07)
--- NOTE | 2023-10-10 20:03 | P.CNS ---
Date of Consult: 10/10/23 Reason for Consult: Gross hematuria Chief Complaint: Hematuria History of Present Illness: 68-year-old gentleman with chronic A-fib on Eliquis (last dose this morning), CAD post PCI with stents following a NC 5 years ago on Brilinta plus aspirin 81, hypertension, hyperlipidemia, GERD and JOHN PAUL with history of bladder cancer diagnosed in 2018 post attempted, but failed, BCG induction course with recurrence as recently as 08/15/2023, and likely high-grade/advanced prostate cancer s/p attempted, but failed, RALRP in 01/2023 subsequently managed by IMRT, completed 07/2023, on abiraterone + prednisone 5 + finasteride. Following his most recent cystoscopic bladder biopsy 08/15/2023 by his urologist in [place], Dr. Barrera, he developed intermittent but recurrent gross hematuria. He and his have since been traveling in a motor home, and had plans to stay in the area for another couple of weeks. However yesterday, the gross hematuria became progressively worse; so he came to the emergency department. He denies any problems urinating, noting he was able to pass some clots without issue, but the emergency department placed a urethral Naqvi catheter and discharged him home. He returned because of issues with clotting of the catheter and bladder spasms ejecting the urine around the catheter emanating from the urethra. Past medical history as above Past surgical history as above Social history: Former smoker Examination: Well-appearing, well-developed, well-nourished, no acute distress Alert, awake, oriented x 3 No dyspnea or sign of respiratory distress Abdomen nontender 20 [place] three-way Naqvi catheter in place draining pink urine with CBI on slow drip. Bladder irrigation procedure note: I then assessed the current catheter situation by cleansing the hub of the catheter with alcohol and then irrigating the catheter using approximately 400 cc of normal saline. I was able to remove a modest quantity of clot, but no significant large clots were encountered. To ensure proper placement of the catheter and optimal irrigation, I recommended exchange of the catheter to a larger, more appropriate three-way, and continuing CBI. Urethral Naqvi catheter exchange, bladder irrigation, and CBI reinitiation procedure note: The 20 [place] three-way Naqvi catheter placed in the emergency department was removed after deflating the balloon of 30 cc of fluid. I then cleansed the glans penis and meatus with Betadine before instilling a lidocaine Uro-Jet and urethrally for local anesthesia. I then passed a 22 [place] three-way Naqvi catheter via his urethra into his bladder with ease. 30 cc of sterile water was placed in the balloon. I then irrigated his bladder with another 250 to 300 cc of sterile water and encountered no additional clots. I thus connected the catheter back to CBI w NS@slow to moderate drip and was able to achieve pink to light pink drainage. Of note, the patient experienced aggressive bladder spasms throughout the irrigation process and even upon initiation of CBI which caused the urine to become significantly pinker. Other than the bladder spasms, he tolerated the procedure well and without complications. 10/08/2023 hemoglobin 13.8, urine culture 10-100 K mixed leroy 10/09/2023 hemoglobin 12.3 10/10/2023 hemoglobin 11.4, WBC 5.9, platelets 150, creatinine 0.88 Assessment and recommendation: 68-year-old gentleman with chronic A-fib on Eliquis (last dose this morning), CAD post PCI with stents following a NC 5 years ago on Brilinta plus aspirin 81, hypertension, hyperlipidemia, GERD and JOHN PAUL with history of bladder cancer diagnosed in 2018 post attempted, but failed, BCG induction course with rec urrence as recently as 08/15/2023, and likely high-grade/advanced prostate cancer s/p attempted, but failed, RALRP in 01/2023 subsequently managed by IMRT, completed 07/2023, on abiraterone + prednisone 5 + finasteride, now with persistent gross hematuria with clot retention and severe bladder spasms, possibly secondary to radiation cystitis versus recurrence of/residual bladder cancer. -Hold Eliquis. Since his last dose was today, 10/10/2023, it will take the next 48 to 72 hours to get out of his system -Hold Brilinta -Hold baby aspirin x 72 hours, then may resume, hopefully once bleeding has cea sed -Continue daily abiraterone plus prednisone 5. If medications not available on formulary, patient should be allowed to take his home medication per routine. -Pending cultures, ceftriaxone versus cefepime IV antimicrobial prophylaxis -Ditropan extended release 10 mg tablets daily for spasms -Valium 5 mg tablets every 8 hours as needed breakthrough spasms -If hematuria fails to resolve by , or if progressive anemia becomes transfusion requiring, operative evaluation may be required. Allergies Penicillins Allergy (Verified 10/10/23 17:03) Hives/Rash Home medications list reviewed: Yes - Past Medical/Surgical History -: A-fib on chronic anticoagulation -: CAD with stents -: Hypertension -: Hyperlipidemia -: GERD -: JOHN PAUL -: bladder cancer Psychosocial/ Personal History: Lives with his in [place], spends some months of the year here in [facility] - Social History Smoking Status: Former smoker Alcohol use: Yes CD- Drugs: No Caffeine use: No Place of Residence: Home Physical Examination Temp Pulse Resp BP Pulse Ox 97.9 F 74 18 139/76 98 10/10/23 18:44 10/10/23 18:44 10/10/23 18:44 10/10/23 18:44 10/10/23 18:44 - Problems (1) Gross hematuria Current Visit: Yes Status: Acute (2) Clot retention of urine Current Visit: Yes Status: Acute (3) Primary malignant neoplasm of prostate with high risk of recurrence due to [place] score of 8 to 10 and PSA greater than 20 Current Visit: Yes Status: Acute (4) S/P radiation 4-12 weeks ago Current Visit: Yes Status: Acute (5) Bladder cancer Current Visit: Yes Status: Acute (6) CAD (coronary artery disease) Current Visit: Yes Status: Acute Qualifiers: Coronary Disease-Associated Artery/Lesion type: [place] artery [place] vs. transplanted heart: [place] heart Associated angina: unspecified whether angina present Qualified Code(s): I25.10 - Atherosclerotic heart disease of [place] coronary artery without angina pectoris (7) Chronic anticoagulation Current Visit: Yes Status: Acute (8) Painful bladder spasm Current Visit: Yes Status: Acute Conclusions/Impression: see A&P in HPI Critical Care: No Time Spent Managing Pts care (In Minutes): 75
[2023-10-10] MEDS: OXYBUTYNIN ER 5 MG TAB PO SCH (20:51)
[2023-10-10] MEDS: CEFTRIAXONE 1,000 MG in NA CHLORIDE 0.9% 50 ML IVPB ONE (20:52)
[2023-10-10] MEDS: TAMSULOSIN 0.4 MG SR CAP PO SCH (20:52)
[2023-10-10] MEDS: DIAZEPAM 5 MG TABLET PO PRN (22:22)
--- NOTE | 2023-10-10 22:35 | P.PN ---
Subjective Date of Service: 10/10/23 Chief Complaint: Hematuria 68-year-old gentleman with chronic A-fib on Eliquis (last dose this morning), CAD post PCI with stents following a NV 5 years ago on Brilinta plus aspirin 81, hypertension, hyperlipidemia, GERD and JOHN PAUL with history of bladder cancer diagnosed in 2018 post attempted, but failed, BCG induction course with recurrence as recently as 08/15/2023, and likely high-grade/advanced prostate cancer s/p attempted, but failed, RALRP in 01/2023 subsequently managed by IMRT, completed 07/2023, on abiraterone + prednisone 5 + finasteride, now with persistent gross hematuria with clot retention and severe bladder spasms, possibly secondary to radiation cystitis versus recurrence of/residual bladder cancer. -Hold Eliquis. Since his last dose was today, 10/10/2023, it will take the next 48 to 72 hours to get out of his system -Hold Brilinta -Hold baby aspirin x 72 hours, then may resume, hopefully once bleeding has ceased -Continue daily abiraterone plus prednisone 5. If medications not available on formulary, patient should be allowed to take his home medication per routine. -Pending cultures, ceftriaxone versus cefepime IV antimicrobial prophylaxis -Ditropan extended release 10 mg tablets daily for spasms -Valium 5 mg tablets every 8 hours as needed breakthrough spasms -If hematuria fails to resolve by , or if progressive anemia becomes transfusion requiring, operative evaluation may be required. I was called back out to the patient's bedside this evening at 10 PM because of difficulty irrigating the catheter associated with the patient squirting urine out of the urethra around the catheter. The nurses were concerned that the catheter may have been clogged, and they were uncertain how to manage the situation. I thus returned to the hospital within minutes and evaluated the patient. He was uncomfortable appearing in moderate distress associated with suprapubic spasmodic pain and urine squirting around the catheter. Urine in the catheter was light pink, and CBI was currently held. Bladder irrigation and catheter assessment procedure note: I again the catheter drainage bag from the catheter and slowly begin to retrograde instill approximately 40 to 50 cc of sterile water. The fluid instilled with ease, but immediately, his distress increased associated with him squirting that fluid back around the catheter out of his urethra. I allowed a few minutes for the spasm to subside and then attempted to instill additional fluid in order to aspirate for any clots. I was subsequently able to instill 60 cc of fluid and aspirate back around 20 to 30 cc before his bladder spasm and forcefully returned the fluid into the syringe associated with some small clots. After that secondary spasm subsided, I then was able to instill an additional 60 cc, and this time, aspirated back the entire quantity of fluid instilled of pink but translucent fluid with no significant clots encountered. I irrigated gently and additional couple of times, and no further spasms occurred. I then reconnected the catheter to drainage with the catheter positioned to deliver approximately 10 cm of water pressure back into his bladder to minimize the bladder collapsing around the catheter. CBI was resumed at a slow to moderate drip, and the fluid was very light pink. Overall, he tolerated the procedure well and without obvious complications. Recommendation: -Ditropan XL 10 mg given at 8:50 PM -Give the breakthrough Valium 5 mg p.o. now -Will reassess in the a.m., and if necessary, provide an additional 5 mg of the oxybutynin for a total of 15 mg per 24-hour dose Physical Examination - Vital Signs Temperature: 96.6 F Blood Pressure: 140/74 Pulse: 71 Respirations: 20 Pulse Ox (%): 96 Assessment And Plan - Current Problems (Diagnosis) (1) Gross hematuria Current Visit: Yes Status: Acute (2) Clot retention of urine Current Visit: Yes Status: Acute (3) Primary malignant neoplasm of prostate with high risk of recurrence due to [place] score of 8 to 10 and PSA greater than 20 Current Visit: Yes Status: Acute (4) S/P radiation 4-12 weeks ago Current Visit: Yes Status: Acute (5) Bladder cancer Current Visit: Yes Status: Acute (6) CAD (coronary artery disease) Current Visit: Yes Status: Acute Qualifiers: Coronary Disease-Associated Artery/Lesion type: [place] artery [place] vs. transplanted heart: [place] heart Associated angina: unspecified whether angina present Qualified Code(s): I25.10 - Atherosclerotic heart disease of [place] coronary artery without angina pectoris (7) Chronic anticoagulation Current Visit: Yes Status: Acute (8) Painful bladder spasm Current Visit: Yes Status: Acute - Plan see Recommendations in Subjective Time Spent Managing PTS Care (In Minutes): 35
[2023-10-11 00:05] LABS: Hematocrit 30.9 % (39.6-49.0); Hemoglobin 10.9 g/dL (13.6-17.9)
[2023-10-11 04:37] LABS: Absolute Eosinophils 0.2 K/uL (0-0.5); Absolute Lymphocytes (CBC) 0.4 K/uL (0.7-4.9); Basophils % 0.6 % (0-1.3); Eosinophils % 2.2 % (0-4.4); Hematocrit 28.7 % (39.6-49.0); Hemoglobin 10.2 g/dL (13.6-17.9); Lymphocytes % 5.8 % (15.3-44.8); MCH 32.8 pg (27.0-35.0); MCHC 35.6 g/dL (32.0-36.0); MCV 92.3 fL (80-100); MPV 10.2 fL (7.6-11.3); Monocytes % 13.1 % (3.3-12.3); Neutrophils % 78.3 % (41.7-73.7); Platelets 138 thou/uL (152-406); RBC Red Blood Cell Count 3.11 M/uL (4.33-5.43); Red Cell Distribution Width 12.8 % (12.1-15.2)
[2023-10-11 04:44] LABS: Anion Gap 7.5 mEq/L (5.0-15.0); Potassium 3.5 mEq/L (3.5-5.1)
[2023-10-11] MEDS: ACETAMINOPHEN 500 MG TAB PO PRN (05:06)
[2023-10-11] MEDS: NACL 0.9% IRR SOLN 2,000 ML IRR SCH (05:40)
[2023-10-11] MEDS: FINASTERIDE 5 MG TAB PO SCH (07:59)
[2023-10-11] MEDS: OXYBUTYNIN ER 5 MG TAB PO STA (07:59)
--- NOTE | 2023-10-11 13:43 | P.PN ---
Date of Service: 10/11/23 Subjective Awake and c/o bladder spasms, he did not get much sleep d/t spasm pain throughout the night. at the bedside, reports seeing Dr. Champion yesterday. CBI still in place ROS 10 point ROS as noted above, otherwise negative Physical Exam General: AAOx3, uncomfortable HEENT: Atraumatic, PERRLA, Mucous membr. moist/pink Neck: Supple, 2+ carotid pulse no bruit, No LAD Respiratory: Clear to auscultation bilaterally, Normal air movement Cardiovascular: RRR, Normal S1 S2, no murmur noted Gastrointestinal: Normal bowel sounds, No tenderness Musculoskeletal: No tenderness, 2+ peripheral pulses Integumentary: No rashes Neurological: Normal gait, Normal speech, Normal strength at 5/5 x4 extr, Normal tone, Normal affect Urinary: Naqvi catheter ([place] without clots) Vitals Reviewed Assessment: Hematuria Bladder/prostate cancer Atrial fibrillation on chronic anticoagulation therapy History of CAD Hypertension Hyperlipidemia Gout GERD JOHN PAUL Plan: Hematuria Bladder/prostate cancer Currently on oral chemotherapy agents Completed 39 radiation treatments for bladder cancer Had attempted prostatectomy but apparently was adhered to his colon Started having hematuria 2 to 3 days xin-kbhey-hac catheter in place with CBI Urology consulted Hold Eliquis and aspirin Out of town urologist in [place] [phone] H/H stable Atrial fibrillation on chronic anticoagulation therapy History of CAD Hold Eliquis and aspirin Continue other home medications Hypertension Hyperlipidemia Gout GERD Continue home medication JOHN PAUL Patient brought his own CPAP which he may use DVT PPX: SCD Code status: Full Discharge Plan: Home Plan to discharge in: 24 Hours <Judie Shaw - Last Filed: 10/11/23 13:44> Patient seen and examined. Plan of care discussed with Ms. Shaw. Hematuria is clearing Continue CBI Monitor H&H and transfuse as needed for hemoglobin less than [address] Champion to follow. Analgesics as needed Continue to hold Eliquis and aspirin Patient may need cystoscopy along the line before resuming anticoagulation and aspirin. <jennifer baca - Last Filed: 10/11/23 17:18>
--- NOTE | 2023-10-11 19:31 | P.PN ---
Date of Service: 10/11/23 68-year-old gentleman with chronic A-fib on Eliquis (last dose this morning), CAD post PCI with stents following a CT 5 years ago on Brilinta plus aspirin 81, hypertension, hyperlipidemia, GERD and JOHN PAUL with history of bladder cancer diagnosed in 2018 post attempted, but failed, BCG induction course with recurrence as recently as 08/15/2023, and likely high-grade/advanced prostate cancer s/p attempted, but failed, RALRP in 01/2023 subsequently managed by IMRT, completed 07/2023, on abiraterone + prednisone 5 + finasteride, now with pe rsistent gross hematuria with clot retention and severe bladder spasms, possibly secondary to radiation cystitis versus recurrence of/residual bladder cancer. -Hold Eliquis. Since his last dose, 10/10/2023, it will take the next 48 to 72 hours to get out of his system -Hold Brilinta -Hold baby aspirin x 72 hours, then may resume, hopefully once bleeding has ceased -Continue daily abiraterone plus prednisone 5. If medications not available on formulary, patient should be allowed to take his home medication per routine. -Pending cultures, ceftriaxone versus cefepime IV antimicrobial prophylaxis -on Ditropan extended release 10 mg tablets daily for spasms -Valium 5 mg tablets every 8 hours as needed breakthrough spasms -If hematuria fails to resolve by , or if progressive anemia becomes transfusion requiring, operative evaluation may be required. Patient seen and examined at 07:30. He says he had largely done well overnight, after receiving a dose of Valium 5 mg at around 10:30 PM. He had done well and rested overnight until around 6:30 AM when the spasms resumed. Hemoglobin trend from yesterday: 11.4-10.9-10.2 Bladder irrigation and catheter assessment procedure note: I again the catheter drainage bag from the catheter and slowly begin to retrograde instill approximately 40 to 50 cc of sterile water. The fluid instilled with ease, but immediately, his distress increased associated with him squirting that fluid back around the catheter out of his urethra. I allowed a few minutes for the spasm to subside and then attempted to instill additional fluid in order to aspirate for any clots. I was subsequently able to instill 60 cc of fluid and aspirate back. I then irrigated several more times for approximately 300 cc of NS used to irrigate his bladder, with no significant clots obtained. I then reconnected the catheter to drainage with the catheter positioned to deliver approximately 10 cm of water pressure back into his bladder to minimize the bladder collapsing around the catheter. CBI was resumed at a slow to moderate drip, and the fluid was very light pink. Overall, he tolerated the procedure well and without obvious complications. Recommendation: -Provided an additional 5 mg of Ditropan extended release this morning at 7:30 AM to try to gain better control over his bladder spasms. -Will continue with the current dosing schedule of 10 mg extended release in the p.m. with 5 mg extended release in the a.m. -Continue with Valium 5 mg p.o. as needed breakthrough spasms -Awaiting chronic anticoagulation to resolve out of his system while monitoring hemoglobin/hematocrit -Continue IV antimicrobial therapy pending cultures Addendum 19:00 I again saw the patient at bedside, interval assessment, and he had just had another significant bladder spasm, the first significant when he had had all day. He had not taken a dose of the Valium since around 1030 this morning. His urine was pink in the tubing at this time on slow drip CBI. Repeat bladder irrigation and catheter assessment procedure note: I again attempted to instill 60 cc of NS into his bladder and was met with a significant spasm that took nearly a minute to 2 minutes to resolve. I was then able to complete the instillation, advance the catheter further into his bladder, at which point I was able to irrigate nicely. No clots were found, and the catheter was draining well. After around 250 cc of irrigation completed, I thus connected the catheter back to 10 cm of water pressure drainage and slow to medium drip CBI with a urine light pink. Recommendations as above
[2023-10-11] MEDS: CEFTRIAXONE 1,000 MG in NA CHLORIDE 0.9% 50 ML IVPB SCH (19:47)
[2023-10-11] MEDS: DIAZEPAM 5 MG TABLET PO SCH (20:00)
[2023-10-12 04:34] LABS: Absolute Eosinophils 0.2 K/uL (0-0.5); Absolute Lymphocytes (CBC) 0.4 K/uL (0.7-4.9); Absolute Monocytes 0.7 K/uL (0.1-1.3); Absolute Neutrophil 3.8 K/uL (1.8-8.0); Basophils % 0.8 % (0-1.3); Eosinophils % 4.8 % (0-4.4); Hematocrit 29.2 % (39.6-49.0); Hemoglobin 10.2 g/dL (13.6-17.9); Lymphocytes % 7.6 % (15.3-44.8); MCH 32.9 pg (27.0-35.0); MCV 94.2 fL (80-100); Monocytes % 13.2 % (3.3-12.3); Neutrophils % 73.6 % (41.7-73.7); Platelets 138 thou/uL (152-406); Red Cell Distribution Width 12.9 % (12.1-15.2)
[2023-10-12 04:44] LABS: Anion Gap 8.6 mEq/L (5.0-15.0); Potassium 3.6 mEq/L (3.5-5.1)
[2023-10-12] MEDS: OXYBUTYNIN ER 5 MG TAB PO SCH (08:28)
[2023-10-12 11:45] VITALS: O2SAT 100
--- NOTE | 2023-10-12 13:40 | P.PN ---
Date of Service: 10/12/23 Subjective Awake and comfortable Urine yellow in color this AM CBI paused and will evaluate this afternoon ROS 10 point ROS as noted above, otherwise negative Physical Exam General: AAOx3, NAD HEENT: Atraumatic, PERRLA, Mucous membr. moist/pink Neck: Supple, 2+ carotid pulse no bruit, No LAD Respiratory: Clear to auscultation bilaterally, Normal air movement, on RA Cardiovascular: Regular rate and rhythm, Normal S1 S2, no murmur noted Gastrointestinal: Normal bowel sounds, NT/ND Musculoskeletal: No tenderness, 2+ peripheral pulses Integumentary: No rashes Neurological: Normal gait, Normal speech, Normal strength at 5/5 x4 extr, Normal tone, Normal affect Urinary: Naqvi catheter Vitals Reviewed Assessment: Hematuria Bladder/prostate cancer Atrial fibrillation on chronic anticoagulation therapy History of CAD Hypertension Hyperlipidemia Gout GERD JOHN PAUL Plan: Hematuria Bladder/prostate cancer Currently on oral chemotherapy agents Completed 39 radiation treatments for bladder cancer Had attempted prostatectomy but apparently was adhered to his colon hematuria -three-way catheter in place with CBI, clamped for a few hours today, bladder spasms Urology consulted Hold Eliquis and aspirin Out of town urologist in [place] [phone] H/H stable Atrial fibrillation on chronic anticoagulation therapy History of CAD Hold Eliquis and aspirin Continue other home medications Hypertension Hyperlipidemia Gout GERD Continue home medication JOHN PAUL Patient brought his own CPAP which he may use DVT PPX: SCD Code status: Full Discharge Plan: Home Plan to discharge in: 24 Hours
--- NOTE | 2023-10-12 22:25 | P.PN ---
Date of Service: 10/12/23 68-year-old gentleman with chronic A-fib on Eliquis (last dose this morning), CAD post PCI with stents following a NV 5 years ago on Brilinta plus aspirin 81, hypertension, hyperlipidemia, GERD and JOHN PAUL with history of bladder cancer diagnosed in 2018 post attempted, but failed, BCG induction course with recurrence as recently as 08/15/2023, and likely high-grade/advanced prostate cancer s/p attempted, but failed, RALRP in 01/2023 subsequently managed by IMRT, completed 07/2023, on abiraterone + prednisone 5 + finasteride, now with pe rsistent gross hematuria with clot retention and severe bladder spasms, possibly secondary to radiation cystitis versus recurrence of/residual bladder cancer. -Eliquis held. Last dose, 10/10/2023 -Brilinta held -Baby aspirin on hold, with plan to resume once bleeding has ceased -On abiraterone plus prednisone 5. -Pending cultures, ceftriaxone versus cefepime IV antimicrobial prophylaxis -on Ditropan extended release 10 mg tablets daily at bedtime and 5mg daily in AM for spasms -Valium 5 mg tablets every 8 hours scheduled Patient seen and examined: We doing well from ON such that his urine was clear with CBI held around noon. CBI clamped, but around 5PM, he developed another severe breakthrough spasm and it again became bloody. When I saw him tonight, CBI was still clamped and the urine was light pink. Hemoglobin trend from yesterday: 11.4-10.9-10.2-10.2 urine cx no growth Bladder irrigation and catheter assessment procedure note: I again the catheter drainage bag from the catheter and slowly begin to retrograde instill approximately 40 to 50 cc of sterile water. The fluid instilled with ease, but immediately, his distress increased associated with him squirting that fluid back around the catheter out of his urethra. I allowed a few minutes for the spasm to subside and then attempted to instill additional fluid in order to aspirate for any clots. I was subsequently able to instill 60 cc of fluid and aspirate back. I then irrigated several more times for approximately 250 cc of NS used to irrigate his bladder, with no significant clots obtained. I then reconnected the catheter to drainage with the catheter positioned to deliver approximately 10 cm of water pressure back into his bladder to minimize the bladder collapsing around the catheter. CBI was resumed at a very slow drip, and the fluid was very light pink. Overall, he tolerated the procedure well and without obvious complications. 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 -CLD for breakfast -NPO p 9AM -IVFs -AMLs -Bactrim DS once daily ppx -stop Ceftriaxone -Resume Ditropan 15mg ER daily (additional 10mg given tonight as only 5 mg given this AM -- please DO NOT ADJUST without discussing directly with me) -continue scheduled Valium 5mg q8h with an additional PRN 5mg q8h for breakthrough spasms
[2023-10-13] MEDS: AMITRIPTYLINE 50 MG TAB PO SCH (03:34)
[2023-10-13] MEDS: D5.45NS W/KCL 20MEQ 20 MEQ/1,000 ML BAG IV SCH (03:34)
[2023-10-13 03:58] LABS: Absolute Eosinophils 0.3 K/uL (0-0.5); Absolute Lymphocytes (CBC) 0.4 K/uL (0.7-4.9); Absolute Monocytes 0.6 K/uL (0.1-1.3); Absolute Neutrophil 3.2 K/uL (1.8-8.0); Basophils % 0.7 % (0-1.3); Eosinophils % 5.8 % (0-4.4); Hematocrit 28.1 % (39.6-49.0); Hemoglobin 9.8 g/dL (13.6-17.9); Lymphocytes % 9.3 % (15.3-44.8); MCH 32.6 pg (27.0-35.0); MCHC 34.7 g/dL (32.0-36.0); MCV 94.1 fL (80-100); MPV 9.7 fL (7.6-11.3); Monocytes % 13.3 % (3.3-12.3); Neutrophils % 70.9 % (41.7-73.7); Nucleated Red Blood Cells % 0.3 % (0-0); Platelets 145 thou/uL (152-406); RBC Red Blood Cell Count 2.99 M/uL (4.33-5.43); Red Cell Distribution Width 12.9 % (12.1-15.2)
[2023-10-13 04:17] LABS: Anion Gap 8.6 mEq/L (5.0-15.0); Potassium 3.6 mEq/L (3.5-5.1)
--- NOTE | 2023-10-13 07:20 | P.PN ---
Date of Service: 10/13/23 Subjective Sleeping and comfortable, at bedside reports he has been more comfortable since starting amitriptyline NPO for possible surgical intervention ROS 10 point ROS as noted above, otherwise negative Physical Exam General: Sleeping, NAD, calm HEENT: Atraumatic, PERRLA, Mucous membr. moist/pink Neck: Supple, 2+ carotid pulse no bruit, No LAD Respiratory: Clear to auscultation bilaterally, Normal air movement, on RA Cardiovascular: Regular rate and rhythm, S1 S2 present, no murmur noted Gastrointestinal: Normal bowel sounds, NT/ND, soft and benign on palpation Musculoskeletal: No tenderness, 2+ peripheral pulses Integumentary: No rashes Neurological: Normal gait, Normal speech, Normal strength at 5/5 x4 extr, Normal tone, Normal affect Urinary: Naqvi catheter (pink) Vitals Reviewed Assessment: Hematuria Bladder/prostate cancer Atrial fibrillation on chronic anticoagulation therapy History of CAD Hypertension Hyperlipidemia Gout GERD JOHN PAUL Plan: Hematuria Bladder/prostate cancer Refractory painful bladder spasms, likely secondary to radiation cystitis Currently on oral chemotherapy agents Completed 39 radiation treatments for bladder cancer Had attempted prostatectomy but apparently was adhered to his colon hematuria -three-way catheter in place with CBI, clamping at 4pm, Dr. Champion will re-evaluate for surgical intervention Urology consulted Hold Eliquis and aspirin Out of town urologist in [place] [phone] H/H 9.8/28.8- dropped from 10.2/29.[address] Champion Valium scheduled per Dr. Champion Oxybutynin [address] Davis Bactlobito p.o. now, stopped Rocephin continue NPO possible surgical intervention Atrial fibrillation on chronic anticoagulation therapy History of CAD Hold Eliquis and aspirin Continue other home medications Hypertension Hyperlipidemia Gout GERD Continue home medication JOHN PAUL Patient brought his own CPAP which he may use DVT PPX: SCD Code status: Full Discharge Plan: Home Plan to discharge in: 24 Hours
[2023-10-13] MEDS: OXYBUTYNIN ER 5 MG TAB PO SCH (09:00)
[2023-10-13] MEDS: SMZ./TMP. 800/160 MG TABLET PO SCH (11:00)
[2023-10-13] MEDS ORDERED: OXYBUTYNIN ER 5 MG TAB PO ONE (22:31)
--- NOTE | 2023-10-14 00:05 | P.PN ---
Date of Service: 10/13/23 68-year-old gentleman with chronic A-fib on Eliquis (last dose this morning), CAD post PCI with stents following a [place] 5 years ago on Brilinta plus aspirin 81, hypertension, hyperlipidemia, GERD and JOHN PAUL with history of bladder cancer diagnosed in 2018 post attempted, but failed, BCG induction course with recurrence as recently as 08/15/2023, and likely high-grade/advanced prostate cancer s/p attempted, but failed, RALRP in 01/2023 subsequently managed by IMRT, completed 07/2023, on abiraterone + prednisone 5 + finasteride, now with pe rsistent gross hematuria with clot retention and severe bladder spasms, possibly secondary to radiation cystitis versus recurrence of/residual bladder cancer. -Eliquis held. Last dose, 10/10/2023 -Baby aspirin on hold, with plan to resume once bleeding has ceased -On abiraterone plus prednisone 5. -on Ditropan extended release 15 mg tablets daily -Valium 5 mg tablets every 6 hours scheduled with 5 mg every 8 hours as needed breakthrough Patient seen and examined, initially at noon today, again at 7:30 PM, and again at 11:45 PM. Hemoglobin trend: 11.4-10.9-10.2-10.2-9.8 urine cx no growth At noon, patient was seen and urine was dark pink. As a result, I recommended irrigation. Bladder irrigation and catheter assessment procedure note: I began to irrigate the catheter, and I instilled 120 cc of normal saline, this time successfully, without the patient's severe bladder spasm expelling the urine around the catheter or back into the syringe. While he did express some sign of discomfort associated with bladder spasm, it was not nearly as severe as it had been previously. As a result, this time I was able to aspirate back and remove a significant quantity of clot that was mostly old. I thus aggressively irrigated for another 800 to 900 cc, for a total of about a liter of irrigation, where all clot seem to be removed after around 750 cc of irrigation. The remaining irrigation was to ensure no additional clots; so ultra aggressive catheter irrigation was performed. No additional clots were found, and he generally tolerated the irrigation quite well. His urine was crystal clear at the end of the irrigation; so the catheter was left off CBI and observed. I returned later that evening, and the patient and his reported that his urine had remained clear all day. Indeed, the urine was clear without a tinge of blood. I thus explained to them my recommendation and plan -if the urine remained clear as of midnight tonight, the catheter may be removed and the pat ient given a voiding trial until 7 AM. As long as urine does not become bloody during his voiding, he may be eligible for discharge. I again reassessed his urine at around 11:45 PM, and it remained crystal-clear. Diagnoses and Recommendation: Refractory Painful Bladder Spasms, likely secondary to Radiation Cystitis -On Ditropan 15 mg extended release daily + Valium 5 mg every 6 hours scheduled + Amitroptyline 50mg PO at bedtime -Would wean off Valium once patient begins to void in a.m. and see how he does with the oxybutynin and amitriptyline -Eventually, would wean the amitriptyline and leave him on the Ditropan Refractory Gross Hematuria, now seemingly resolved with clear urine, in setting of h/o urothelial Ca of the bladder -Regular diet for dinner -N.p.o. after 2 AM -Continue Bactrim DS once daily ppx -If recurrent gross hematuria, operative evaluation may be required -General medicine/cardiology consideration of his risk of continuing to hold the Eliquis relative to his atrial fibrillation. I think the best point of valor right now would be to avoid resuming the Eliquis. Certainly the baby aspirin could be resumed with low risk of bleeding, and if his cardiac risk is high and some anticoagulation is needed, recommend Lovenox instead, which has a shorter half-life. He has an appointment scheduled with his home urologist in [place] the week after next, and they plan to leave to drive back home next week. I am concerned that resuming the Eliquis is at high risk for the recurrent bleeding at some point during that time; so if it can remain held for now, until after cystoscopic analysis is completed, that would be best. -Over 1 hour of [id number] time spent in the frequent visits and multiple analyses described above and counseling and discussion with the patient and his
[2023-10-14 03:57] LABS: Absolute Eosinophils 0.2 K/uL (0-0.5); Absolute Lymphocytes (CBC) 0.3 K/uL (0.7-4.9); Absolute Monocytes 0.6 K/uL (0.1-1.3); Absolute Neutrophil 3.8 K/uL (1.8-8.0); Basophils % 0.6 % (0-1.3); Hematocrit 29.6 % (39.6-49.0); Hemoglobin 10.4 g/dL (13.6-17.9); Lymphocytes % 5.1 % (15.3-44.8); MCH 33.1 pg (27.0-35.0); MCHC 35.2 g/dL (32.0-36.0); MPV 9.5 fL (7.6-11.3); Neutrophils % 77.3 % (41.7-73.7); Platelets 159 thou/uL (152-406); RBC Red Blood Cell Count 3.15 M/uL (4.33-5.43); Red Cell Distribution Width 12.8 % (12.1-15.2)
[2023-10-14 04:12] LABS: Anion Gap 7.6 mEq/L (5.0-15.0); Potassium 3.6 mEq/L (3.5-5.1)
--- NOTE | 2023-10-14 13:55 | P.PN ---
Date of Service: 10/14/23 68-year-old gentleman with chronic A-fib on Eliquis (last dose this morning), CAD post PCI with stents following a [place] 5 years ago on Brilinta plus aspirin 81, hypertension, hyperlipidemia, GERD and JOHN PAUL with history of bladder cancer diagnosed in 2018 post attempted, but failed, BCG induction course with recurrence as recently as 08/15/2023, and likely high-grade/advanced prostate cancer s/p attempted, but failed, RALRP in 01/2023 subsequently managed by IMRT, completed 07/2023, on abiraterone + prednisone 5 + finasteride, now with pe rsistent gross hematuria with clot retention and severe bladder spasms, possibly secondary to radiation cystitis versus recurrence of/residual bladder cancer. -Eliquis held. Last dose, 10/10/2023 -Baby aspirin on hold, with plan to resume once bleeding has ceased -On abiraterone plus prednisone 5. -on Ditropan extended release 15 mg tablets daily -Valium 5 mg tablets every 6 hours scheduled with 5 mg every 8 hours as needed breakthrough Hemoglobin trend: 11.4-10.9-10.2-10.2-9.8-10.4 urine cx no growth Catheter removed at [place], and patient voiding with ease and with clear light yellow urine. He denies any need to push or strain to urinate, no incomplete emptying, and no bothersome urgency. He does acknowledge frequency, but he is on IVFs. Diagnoses and Recommendation: Refractory Painful Bladder Spasms, likely secondary to Radiation Cystitis, now resolved - Continue Ditropan 15 mg extended release daily - stop Valium 5 mg every 6 hours scheduled and Amitroptyline 50mg PO at bedtime -continue Valium 5mg q8h PRN breakthrough spasms -check bladder scan PVR to ensure adequate emptying Refractory Gross Hematuria, now resolved with clear urine, in setting of h/o urothelial Ca of the bladder -Resume diet -May stop Bactrim DS after today's dose -If recurrent gross hematuria, operative evaluation may be required -General medicine/cardiology consideration of his risk of continuing to hold the Eliquis relative to his atrial fibrillation. I think the best point of valor right now would be to avoid resuming the Eliquis. Certainly the baby aspirin could be resumed with low risk of bleeding, and if his cardiac risk is high and some anticoagulation is needed, recommend Lovenox instead, which has a shorter half-life. He has an appointment scheduled with his home urologist in [place] the week after next, and they plan to leave to drive back home next week. I am concerned that resuming the Eliquis is at high risk for the recurrent bleeding at some point during that time; so if it can remain held for now, until after cystoscopic analysis is completed, that would be best.
--- NOTE | 2023-10-14 15:44 | P.PN ---
Date of Service: 10/14/23 Subjective feel well this AM no c/o bladder spasms urine is yellow likely discharge at PT evaluation ROS 10 point ROS as noted above, otherwise negative Physical Exam General: AAO x3, NAD, calm HEENT: Atraumatic, PERRLA, Mucous membr. moist/pink Neck: Supple, 2+ carotid pulse no bruit, No LAD Respiratory: Clear to auscultation bilaterally, Normal air movement, on RA Cardiovascular: S1 S2 present, RRR, no murmur noted Gastrointestinal: bowel sounds present, NT/ND, soft and benign on palpation Musculoskeletal: No tenderness, 2+ peripheral pulses Integumentary: No rashes Neurological: Normal gait, Normal speech, Normal strength at 5/5 x4 extr, Normal tone, Normal affect Urinary: Naqvi catheter (yellow) Vitals Reviewed Assessment: Hematuria Bladder/prostate cancer Atrial fibrillation on chronic anticoagulation therapy History of CAD Hypertension Hyperlipidemia Gout GERD JOHNP AUL Plan: Hematuria Bladder/prostate cancer Refractory painful bladder spasms, likely secondary to radiation cystitis Currently on oral chemotherapy agents Completed 39 radiation treatments for bladder cancer Had attempted prostatectomy but apparently was adhered to his colon hematuria -three-way catheter in place with CBI, clamping at 4pm, Dr. Champion will re-evaluate for surgical intervention Urology consulted Hold Eliquis and aspirin Out of town urologist in [place] [phone] H/H 10.4/29.6- stable stopped Amitriptyline Valium q8h PRN Oxybutynin [address] Davis stop Bactrim after todays dose restarted diet Atrial fibrillation on chronic anticoagulation therapy History of CAD Hold Eliquis , consider lovenox at discharge Aspirin may restart at discharge Continue other home medications Hypertension Hyperlipidemia Gout GERD Continue home medication JOHN PAUL Patient brought his own CPAP which he may use DVT PPX: SCD Code status: Full Discharge Plan: Home Plan to discharge in: 24 Hours
[2023-10-15 09:13] VITALS: BP 146/74; TEMP 97.1
--- NOTE | 2023-10-15 10:58 | P.DS ---
Admission Date: 10/11/23 Discharge Date: 10/15/23 Disposition: ROUTINE DISCHARGE Discharge Condition: GOOD Reason for Admission: Hematuria Brief History of Present Illness: Diagnosis Hematuria Bladder/prostate cancer Atrial fibrillation on chronic anticoagulation therapy History of CAD Hypertension Hyperlipidemia Gout GERD JOHN PAUL HPI 10/10/23 Nicholas German is a 68-year-old male with history of atrial fibrillation on chronic anticoagulation, CAD hypertension, hyperlipidemia, gout, GERD and obstructive sleep apnea presents the emergency department chief complaint of hematuria. He has a medical history of prostate and bladder cancer as well, last year they attempted to remove his prostate but it was reportedly adhered to his colon so they are unable to remove it, he then underwent 39 radiation treatments for the bladder cancer which significantly improved, they performed a biopsy in August and it still was positive for cancer. He has been taking an oral chemo agent since then. He typically gets his care in [place], his urologist name is Dr. Barrera phone number [phone] The past few days he has been having blood in his urine, the first time he came to the emergency department it seemed to resolve spontaneously so he was discharged, he had to come back as he could not urinate and a Edwards catheter was placed and he was discharged but the bleeding continued and therefore he had to come back for third time the emergency department he is now being admitted for hematuria. A three-way catheter was placed in the emergency department and he has undergone bladder irrigation still with very dark blood returning. Urology was consulted by the ER physician. Patient does take Eliquis his last dose was today around noon. He had abdominal CT performed on 10/09/2023 which revealed 2.9 cm abdominal aortic aneurysm with recommended 5-year follow-up observation, left benign renal cyst measuring 4.3 cm no follow-up imaging recommended cystic structures in the pelvis most likely representing urinary bladder diverticula. ED prior wishes to admit patient for further evaluation and management of hematuria. Hospital Course: Nicholas German is a pleasant 68 year old male with a past medical history significant for atrial fibrillation on chronic anticoagulation, CAD hypertension, hyperlipidemia, gout, GERD and obstructive sleep apnea who was admitted to the [facility] on 10/10/23 for hematuria. Nicholas German presented to the ED with chief complaint of hematuria on 10/09. He has a history of taking Eliquis and aspirin for atrial fibrillation. Those medications were stopped during this admission. He has tolerated a edwards catheter with CBI until the bleeding stopped on 10/13. No surgical intervention this admission but urology was closely managing. Bladder spasms have been a problem but have resolved with valium, amitriptyline, And Ditropan XL. Mr. German will need clearance to restart blood thinners. Please see your urologist soon for a cystoscopy. On 10/15/23, Nicholas was seen on morning rounds and deemed medically stable for discharge. Nicholas was discharged with instructions to schedule follow-up appointments with PCP and urology from home in [place]. Nicholas was provided prescriptions for Valium, and Diatropan. The patient and family members were given the opportunity to ask questions and reported no further questions. Furthermore, all questions were answered to the best of my ability. A copy of this discharge summary will be sent to the above providers to facilitate continuity of care. Today, I personally spent 50 minutes with Nicholas, of which greater than 50% of the time was spent in patient education, counseling, and coordination of care as described above. Physical Exam General: Alert and oriented x3, NAD, calm HEENT: Atraumatic, PERRLA, Mucous membr. moist/pink Neck: Supple, 2+ carotid pulse no bruit, No LAD Respiratory: Symmetrical chest wall movement, clear to auscultation bilaterally, on RA Cardiovascular: S1 S2 present, regular rate and rhythm, no murmur noted Gastrointestinal: bowel sounds present, NT/ND, soft and benign on palpation Musculoskeletal: No tenderness, 2+ peripheral pulses Integumentary: No rashes Neurological: Normal gait, Normal speech, Normal strength at 5/5 x4 extr, Normal tone, Normal affect Urinary: Edwards catheter (yellow) Vital Signs/Physical Exam: Temp Pulse Resp BP Pulse Ox 97.1 F 88 18 146/74 H 88 L 10/15/23 08:00 10/15/23 08:00 10/15/23 08:00 10/15/23 08:00 10/15/23 08:00 Laboratory Data at Discharge: WBC 5.00 thou/uL (4.3-10.9) 10/14/23 03:18 Hgb 10.4 g/dL (13.6-17.9) L 10/14/23 03:18 Hct 29.6 % (39.6-49.0) L 10/14/23 03:18 Plt Count 159 thou/uL (152-406) 10/14/23 03:18 PT 15.2 SECONDS (9.5-12.5) H 10/10/23 18:36 INR 1.40 10/10/23 18:36 Sodium 140 mEq/L (136-145) 10/14/23 03:18 Potassium 3.6 mEq/L (3.5-5.1) 10/14/23 03:18 BUN 11 mg/dL (7-18) 10/14/23 03:18 Creatinine 0.92 mg/dL (0.70-1.30) 10/14/23 03:18 Glucose 124 mg/dL (74-106) H 10/14/23 03:18 Total Bilirubin 0.3 mg/dL (0.2-1.0) 10/10/23 17:33 AST 12 U/L (15-37) L 10/10/23 17:33 ALT 26 U/L (16-61) 10/10/23 17:33 Alkaline Phosphatase 64 U/L (45-117) 10/10/23 17:33 Home Medications: Abiraterone Acetate [Zytiga] 250 mg PO 0600 10/11/23 Allopurinol 0.5 tab PO BEDTIME 10/11/23 Aspirin [Adult Aspirin Regimen] 81 mg PO DAILY 10/11/23 Ezetimibe [Zetia*] 10 mg PO DAILY 10/11/23 Finasteride [Proscar*] 5 mg PO DAILY 10/11/23 Omeprazole 20 mg PO NOON 10/11/23 Rosuvastatin [Crestor*] 5 mg PO BEDTIME 10/11/23 Tamsulosin [Flomax*] 0.4 mg PO DAILY 10/11/23 carvediloL [Coreg*] 12.5 mg PO BID 10/11/23 hydroCHLOROthiazide [Hydrochlorothiazide*] 12.5 mg PO DAILY 10/11/23 predniSONE [Prednisone*] 5 mg PO 0600 10/11/23 Tamsulosin [Flomax*] 0.4 mg PO BEDTIME cap 10/15/23 diazePAM [Valium*] 5 mg PO Q8H PRN 5 Days #15 tab 10/15/23 oxyBUTYnin chloride [Ditropan Xl*] 15 mg PO DAILY 30 Days #90 tab.sa 10/15/23 New Medications: oxyBUTYnin chloride [Ditropan Xl*] 15 mg PO DAILY 30 Days #90 tab.sa diazePAM [Valium*] 5 mg PO Q8H PRN 5 Days #15 tab PRN Reason: breakthrough bladder spasms Physician Discharge Instructions: Nicholas German presented to the ED with chief complaint of hematuria on 10/09. He has a history of taking Eliquis and aspirin for atrial fibrillation. Those medications were stopped during this admission. He has tolerated a edwards catheter with CBI until the bleeding stopped on 10/13. No surgical intervention this admission but urology was closely managing. Bladder spasms have been a pr oblem but have resolved with valium, amitriptyline, And Ditropan XL. Mr. German will need clearance to restart blood thinners. Please see your urologist soon for a cystoscopy. 1. Please call and schedule a follow-up appointment with your PCP in 3-5 days - Please follow-up with your PCP for medication refills/adjustments 2. Please call and schedule a follow-up appointment with urologist as soon as you arrive home. 3. continue heart healthy diet 4. No activity restrictions, fall precautions, ambulate safely with your walker 5. Return to ED if symptoms worsen New medications Valium as needed Ditropan XL daily Diet: AHA Followup: NONE,NONE [Primary Care Provider] - Time spent managing pt's care (in minutes): 50
== END 2023-10-15 10:55 | disposition home or self-care (01) | DRG 687 ==
LOC: ER 10:47 → 2ND 16:17 → OBSVTOIN 10-11 13:28
PROVIDERS: ADMIT Hospitalist; ATTEND Internal Medicine
PROC: 0T9B70Z Drainage of Bladder with Drainage Device, Via Natural or Artificial Opening (ICD-10-PCS; principal; 2023-10-11)
DX: C67.9 Malignant neoplasm of bladder, unspecified (principal); I48.20 Chronic atrial fibrillation, unspecified; R31.0 Gross hematuria; E78.5 Hyperlipidemia, unspecified; M10.9 Gout, unspecified; N28.1 Cyst of kidney, acquired; G47.33 Obstructive sleep apnea (adult) (pediatric); C61 Malignant neoplasm of prostate; I71.40 Abdominal aortic aneurysm, without rupture, unspecified; K21.9 Gastro-esophageal reflux disease without esophagitis; I25.10 Atherosclerotic heart disease of native coronary artery without angina pectoris; I25.2 Old myocardial infarction; R33.8 Other retention of urine; R33.9 Retention of urine, unspecified; Z88.0 Allergy status to penicillin; Z88.8 Allergy status to other drugs, medicaments and biological substances; Z79.01 Long term (current) use of anticoagulants; Z89.022 Acquired absence of left finger(s); Z87.891 Personal history of nicotine dependence; Y84.8 Other medical procedures as the cause of abnormal reaction of the patient, or of later complication, without mention of misadventure at the time of the procedure
CPT/HCPCS: 36415; 80048; 80053; 81001; 83036; 85014; 85018; 85025; 85610; 87086; 87088; 96374; 97116; 97161; 97530; 99285; G0378; J0696